=== PATIENT | male | born 1950 ===

== ENCOUNTER 2018-01-18 09:48 | Outpatient (CLI) | payer OTHER ==
[~2018-01-18 09:48] MED LIST: KETO10TA2 PO; ORPH100T PO
== END 2018-01-18 10:10 | disposition home or self-care (01) ==
LOC: LAB 09:48
DX: I10 Essential (primary) hypertension (principal); E11.9 Type 2 diabetes mellitus without complications; E03.8 Other specified hypothyroidism; E78.2 Mixed hyperlipidemia

== ENCOUNTER → 2018-03-06 10:25 | Outpatient (CLI) | payer OTHER | END | disposition home or self-care (01) | LOC: LAB 10:25 | DX: R97.20 Elevated prostate specific antigen [PSA] (principal) ==

== ENCOUNTER 2018-03-13 10:07 | Outpatient (CLI) | payer OTHER | END 2018-03-13 10:21 | disposition home or self-care (01) | LOC: MRI 10:07 | DX: C61 Malignant neoplasm of prostate (principal) | CPT/HCPCS: 72196; A9579 ==

== ENCOUNTER 2018-03-18 11:09 | Outpatient (CLI) | payer OTHER | END 2018-03-18 11:20 | disposition home or self-care (01) | LOC: NUCLEAR 11:09 | DX: C61 Malignant neoplasm of prostate (principal) | CPT/HCPCS: 78306; A9503 ==

== ENCOUNTER 2018-07-31 11:22 | Outpatient (CLI) | payer OTHER | END 2018-07-31 11:30 | disposition home or self-care (01) | LOC: LAB 11:22 | DX: C61 Malignant neoplasm of prostate (principal) ==

== ENCOUNTER 2018-11-05 09:29 | Outpatient (CLI) | payer OTHER | END 2018-11-05 09:38 | disposition home or self-care (01) | LOC: LAB 09:29 | DX: C61 Malignant neoplasm of prostate (principal) ==

== ENCOUNTER 2019-02-10 09:36 | Outpatient (CLI) | payer OTHER | END 2019-02-10 14:44 | disposition home or self-care (01) | LOC: LAB 09:36 | DX: C61 Malignant neoplasm of prostate (principal) ==

== ENCOUNTER 2019-05-07 09:45 | Outpatient (CLI) | payer OTHER | END 2019-05-07 11:17 | disposition home or self-care (01) | LOC: LAB 09:45 | DX: C61 Malignant neoplasm of prostate (principal) ==

== ENCOUNTER 2019-11-18 10:42 | Outpatient (CLI) | payer OTHER ==
[~2019-11-18 10:42] MED LIST changes: +CYCLOBENZAPRINE10 MG PO; +MELOXICAM7.5 MG PO; +ZOLOFT50 MG PO
== END 2019-11-18 10:54 | disposition home or self-care (01) ==
LOC: LAB 10:42
DX: C61 Malignant neoplasm of prostate (principal)

== ENCOUNTER 2020-11-25 10:34 | Outpatient (CLI) | payer OTHER | END 2020-11-25 12:54 | disposition home or self-care (01) | LOC: LAB 10:34 | PROVIDERS: ATTEND Specialist | DX: N39.0 Urinary tract infection, site not specified (principal) ==

== ENCOUNTER 2021-05-31 10:14 | Outpatient (CLI) | payer OTHER | END 2021-05-31 10:16 | disposition home or self-care (01) | LOC: LAB 10:14 | PROVIDERS: ATTEND Specialist | DX: C61 Malignant neoplasm of prostate (principal) ==

== ENCOUNTER 2021-12-03 10:59 | Outpatient (CLI) | payer OTHER | END 2021-12-03 15:00 | disposition home or self-care (01) | LOC: LAB 10:59 | PROVIDERS: ATTEND Specialist | DX: C61 Malignant neoplasm of prostate (principal) ==

== ENCOUNTER 2022-02-03 08:11 | Outpatient (CLI) | payer OTHER | END 2022-02-03 18:00 | disposition home or self-care (01) | LOC: LAB 08:11 | PROVIDERS: ATTEND Internal Medicine Cardiovascular Disease | DX: D03.9 Melanoma in situ, unspecified (principal); I10 Essential (primary) hypertension; E11.9 Type 2 diabetes mellitus without complications; E78.2 Mixed hyperlipidemia ==

== ENCOUNTER 2022-06-02 06:55 | Outpatient (CLI) | payer OTHER | END 2022-06-02 06:56 | disposition home or self-care (01) | LOC: LAB 06:55 | PROVIDERS: ATTEND Internal Medicine Cardiovascular Disease | DX: I10 Essential (primary) hypertension (principal); E11.9 Type 2 diabetes mellitus without complications; E03.9 Hypothyroidism, unspecified; E78.2 Mixed hyperlipidemia ==

== ENCOUNTER 2023-08-29 09:50 | Outpatient (CLI) | payer OTHER | END 2023-08-29 09:53 | disposition home or self-care (01) | LOC: RAD 09:50 | PROVIDERS: ATTEND Internal Medicine Pulmonary Disease | DX: J44.1 Chronic obstructive pulmonary disease with (acute) exacerbation (principal) ==